=== PATIENT | female | born 1965 | race Asian ===

== ENCOUNTER → 2017-12-24 | Outpatient (CLI) | payer OTHER ==
[2017-12-24 11:53] LABS: Potassium 4.4 mmol/L (3.5-5.1)
[2017-12-24 12:02] LABS: Albumin 4.2 g/dL (3.4-5.0); BUN/Creatinine Ratio 14.3; Bilirubin, Total 0.6 mg/dL (0.2-1.0); Calcium 9.2 mg/dL (8.5-10.1); Total Protein 8.4 g/dL (6.4-8.2)
[2017-12-24 12:04] LABS: Follicle Stimulating Hormone 82.37 IU/L (SEE BELOW); Leuteinizing Hormone 38.9 IU/L
== END | disposition home or self-care (01) ==
LOC: LAB 10:41
PROVIDERS: ATTEND Obstetrics & Gynecology
DX: N95.1 Menopausal and female climacteric states (principal)
CPT/HCPCS: 36415; 80053; 80061; 82670; 83001; 83002; 84403; 84443